=== PATIENT | female | born 1995 | race Two or more races ===

== ENCOUNTER 2016-06-24 16:12 | Emergency (ER) | payer OTHER ==
[~2016-06-24 16:12] MED LIST: ACETAMINOPHEN PO; ACID REDUCER20 MG PO; ADVAIR 1001 DISK W/D; AMOXICILLIN875 MG PO; AMOXIL500 M1 PO; AUGMENTIN PO; AZITHROMYCIN250 MG PO; BACTRIM DS TABL1 TA1 PO; CIPRO PO; CLARITIN10 M1 PO; CLARITIN10 MG PO; DOXYCYCLINE HY100 M3 PO; FAMOTIDINE PO; FLONASE 0.05% N16 GM; FLONASE16 GM; IBUPROFEN800 MG PO; KEFLEX500 M1 PO; MACROBID 100 M100 MG PO; MOTRIN400 MG PO; MOUTHWASH180 ML PO; NO MEDICATIONS; PHENERGAN PO; PHENERGAN PR; SINGULAIR PO; ZITHROMAX PO; ZITHROMAX1 G/PKT PO; ZYRTEC10 M2 PO
[2016-06-24 16:43] LABS: URINE SOURCE CLEAN CATCH
[2016-06-24 16:55] LABS: URINE APPEARANCE CLEAR; URINE BILIRUBIN NEG (NEG); URINE BLOOD NEG (NEG); URINE COLOR YELLOW; URINE GLUCOSE NEG (NEG); URINE KETONE NEG (NEG); URINE LEUKOCYTE ESTERASE 1+ (NEG); URINE NITRATE POS (NEG); URINE PH 7.5 (5-8); URINE PROTEIN NEG (NEG); URINE SPECIFIC GRAVITY 1.028 (1.003-1.035)
[2016-06-24 16:57] LABS: CULTURE INDICATED? YES; URINE BACTERIA AUWI 4+ (NEGATIVE); URINE SQUAMOUS EPITHELIAL CELL OCC /[HPF]
[2016-06-27 08:33] LABS: CHLAMYDIA TRACH Not Detected (Not Detected); N GONOR Not Detected (Not Detected)
== END 2016-06-24 17:22 | disposition home or self-care (01) ==
LOC: CED 16:12 → CFTX 16:12 → CED 16:44 → CFTX 17:22
PROVIDERS: Emergency Medicine
DX: N30.00 Acute cystitis without hematuria (principal); J45.909 Unspecified asthma, uncomplicated; Z88.0 Allergy status to penicillin; Z88.1 Allergy status to other antibiotic agents; Z90.49 Acquired absence of other specified parts of digestive tract
CPT/HCPCS: 81003; 84703; 87086; 87088; 87186; 87491; 87591; 87808; 87905; 96372; 99283; J0696

== ENCOUNTER 2016-07-24 16:24 | Emergency (ER) | payer OTHER | END 2016-07-24 17:51 | disposition home or self-care (01) | LOC: CED 16:24 → CFTX 16:24 | DX: J02.9 Acute pharyngitis, unspecified (principal); J45.909 Unspecified asthma, uncomplicated | CPT/HCPCS: 87651; 99282 ==

== ENCOUNTER 2016-11-03 17:00 | Emergency (ER) | payer OTHER ==
[~2016-11-03] VITALS: Ht 147.3 cm; Wt 71.2 kg
[2016-11-03 17:47] LABS: URINE SOURCE CATH
[2016-11-03 17:56] LABS: URINE APPEARANCE CLEAR; URINE BILIRUBIN NEG (NEG); URINE BLOOD NEG (NEG); URINE COLOR YELLOW; URINE GLUCOSE NEG (NEG); URINE KETONE NEG (NEG); URINE LEUKOCYTE ESTERASE NEG (NEG); URINE NITRATE NEG (NEG); URINE PH 5.5 (5-8); URINE PROTEIN NEG (NEG); URINE SPECIFIC GRAVITY 1.021 (1.003-1.035)
[2016-11-03 18:02] LABS: CULTURE INDICATED? NO
[2016-11-03 18:32] LABS: BASOPHIL# 0.1 X10e3 (0-0.3); BASOPHIL% 0.8 % (0-2.5); EOSINOPHIL# 0.2 X10e3 (0-0.7); EOSINOPHIL% 3.2 % (0.0-7.0); HEMATOCRIT 42.2 % (35.0-45.0); HEMOGLOBIN 14.8 gm/dL (12.0-16.0); LYMPHOCYTE# 3.8 X10e3 (1.0-3.5); LYMPHOCYTE% 52.6 % (17.0-45.0); MEAN CELL VOLUME 85.9 FL (83-96); MEAN PLATELET VOLUME 7.4 FL (6.5-11.5); MONOCYTE# 0.5 X10e3 (0-1.0); MONOCYTE% 6.4 % (3.0-12.0); NEUTROPHIL# 2.7 X10e3 (1.5-7.1); PLATELET COUNT 242 X10e3 (140-420); RED BLOOD COUNT 4.92 X10e (3.90-5.30); WHITE BLOOD COUNT 7.2 X10e3 (4.0-10.5)
[2016-11-03 18:45] LABS: DIFF IND YES
[2016-11-03 18:59] LABS: CALCIUM SERUM 9.6 mg/dL (8.4-10.2); CREATININE SERUM 0.5 mg/dL (0.6-1.4); GLOM FILT RATE Estimated 139.3 mL/min (>60); POTASSIUM 3.5 mmol/L (3.5-5.1)
[2016-11-03 19:09] LABS: PLATELET ESTIMATE NORMAL (NORMAL)
[2016-11-03 19:10] LABS: ANISOCYTOSIS SL
[2016-11-06 04:49] LABS: CHLAMYDIA TRACH Not Detected (Not Detected); N GONOR Not Detected (Not Detected)
== END 2016-11-03 19:07 | disposition home or self-care (01) ==
LOC: CED 17:00 → CFTX 17:00 → CED 17:46 → CFTX 19:07
PROVIDERS: Nurse Practitioner
DX: N93.8 Other specified abnormal uterine and vaginal bleeding (principal); J45.909 Unspecified asthma, uncomplicated; Z90.49 Acquired absence of other specified parts of digestive tract; Z88.0 Allergy status to penicillin
CPT/HCPCS: 36415; 80048; 81003; 84703; 85025; 87491; 87591; 87808; 87905; 99284